=== PATIENT | male | born 1990 | race Hispanic/Latino ===

== ENCOUNTER 2025-08-23 20:53 | Emergency (ER) | payer OTHER ==
[~2025-08-23] VITALS: Ht 177.8 cm; Wt 126.1 kg
--- NOTE | 2025-08-23 21:27 | ERN ---
ED Note History of Present Illness Stated Complaint: C/O FOREIGN OBJECT IN RT EYE Chief Complaint: Eye Problems Time Seen by MD: 20:59 Dictation: PATIENT IS A 35-YEAR-OLD MALE COMING IN TODAY WITH COMPLAINTS OF A FOREIGN BODY SENSATION TO THE RIGHT EYE ONSET YESTERDAY. 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 HE SAID HE ATTEMPTING TO WASH OUT YESTERDAY. NO PRIMARY CARE DOCTOR. HE DENIES ANY CONTACTS OR CORRECTIVE LENSES. VISION CHANGES. Allergies: Coded Allergies: No Known Allergies (Unverified Allergy, Unknown, 08/23/25) Past Medical History Past Medical History: No Pertinent History Surgical History: None RN Note Reviewed/Agreed w/PFSH: Yes Review of System Dictation CONSTITUTIONAL: NEGATIVE EXCEPT FOR HPI HEAD/FACE: NEGATIVE EXCEPT FOR HPI EENT: NEGATIVE EXCEPT FOR HPI FOREIGN BODY SENSATION RIGHT EYE RESPIRATORY: NEGATIVE EXCEPT FOR HPI GASTROINTESTINAL/ABDOMINAL: NEGATIVE EXCEPT FOR HPI GENITOURINARY: NEGATIVE EXCEPT FOR HPI MUSCULOSKELETAL: NEGATIVE EXCEPT FOR HPI INTEGUMENTARY: NEGATIVE EXCEPT FOR HPI NEUROLOGICAL/PSYCH: NEGATIVE EXCEPT FOR HPI HEMATOLOGIC/LYMPHATIC: NEGATIVE EXCEPT FOR HPI ALL SYSTEMS NEGATIVE, EXCEPT NOTED ABOVE. 13 POINT REVIEW OF SYSTEMS ASSESSED AND ALL NEGATIVE EXCEPT FOR ABOVE. Initial Vital Sign VS Vital Signs Date Time Temp Pulse Resp B/P (MAP) Pulse Ox O2 Delivery O2 Flow Rate FiO2 08/23/25 20:56 97.2 59 20 115/61 98 Room Air 08/23/25 21:10 0 21 Physical Exam Dictation VITAL SIGNS REVIEWED GENERAL APPEARANCE: ALERT, ORIENTED X 3, NO ACUTE DISTRESS, WELL DEVELOPED, NOURISHED. HEAD AND FACE: NON-TRAUMATIC. EYES: PERRL, RIGHT CONJUNCTIVA INJECTED, EYELID NO TRAUMA, ANTERIOR CHAMBER WITH ARCUS SENILIS. EOMS INTACT PERRLA EARS: PINNAS INTACT AND NO SIGNS OF TRAUMA OR ERYTHEMA EAR CANALS CLEAR AND NO DISCHARGE TM NO ERYTHEMA NOSE: NO DISCHARGE, NO BLEEDING. OROPHARYNX: MOUTH NORMAL, TONGUE PINK, PHARYNX CLEAR,NO ERYTHEMA, TONSILS NO EXUDATES, NO ABSCESSES NOTED, MUCOUS MEMBRANE MOIST NECK: SUPPLE, NON-TENDER, NO THYROMEGALY, NO MASSES, NO JVD, NO BRUITS BREAST:DEFERRED CHEST:NO TENDERNESS, NO CREPITUS, NO PARADOXICAL MOVEMENT, NO RETRACTIONS LUNGS:CLEAR, WELL-VENTILATED, SYMMETRIC, NO RALES, NO WHEEZING, NO RHONCHI, NO STRIDOR, GOOD BREATH SOUNDS BILATERALLY HEART: REGULAR RATE, REGULAR RHYTHM, NO MURMUR, NO GALLOPS VASCULAR: NO PERIPHERAL EDEMA, ABDOMEN: SOFT, POSITIVE BOWEL SOUNDS, NONDISTENDED, NO GUARDING, NONTENDER, NO REBOUND, NO MASSES NO HEPATOMEGALY, NO SPLENOMEGALY, NO GREEN'S SIGN, NO HERNIAS. RECTAL: DEFERRED GENITAL: DEFERRED NEUROLOGICAL: NORMAL SPEECH, MOTOR FUNCTION INTACT, SENSORY FUNCTION INTACT MUSCULOSKELETAL: NECK NONTENDER, FULL RANGE OF MOTION, BACK NONTENDER, FULL RANGE OF MOTION, EXTREMITIES: NONTENDER, FULL RANGE OF MOTION SKIN: COLOR PINK, DRY, NO TURGOR, NO RASH, NO LACERATIONS, NO ABRASIONS, NO CONTUSIONS. LYMPHATIC: DEFERRED Results (Laboratory/Radiology) Labs Reviewed?: Yes ED Course ED Course Orders Procedure Category Date Status Time Visual Acuity Test CPOE 08/23/25 Transmitted (Er) 21:24 Tetracaine Hcl PHA 08/23/25 Complete (Pontocaine 0.5% 21:24 Fluorescein Sodium PHA 08/23/25 Complete (Vfyrd-T-Hdgbv At) 21:30 Ibuprofen 800 Mg Tab PHA 08/23/25 Complete (Motrin) 21:30 Current Medications Medications (Trade) Dose Ordered Sig/Zari Route PRN Reason Start Time Stop Time Status Last Admin Dose Admin Fluorescein Sodium (Jsbju-G-Evzvl At) 1 strip ONCE ONCE OP 08/23/25 21:30 08/23/25 21:31 DC 08/23/25 21:42 Ibuprofen (moTRIN) 800 mg ONCE ONCE PO 08/23/25 21:30 08/23/25 21:31 DC 08/23/25 21:42 Tetracaine HCl (Pontocaine 0.5% Ophth Soln) 2 drop ONCE STAT OP 08/23/25 21:24 08/23/25 21:27 DC 08/23/25 21:42 Vital Signs Date Time Temp Pulse Resp B/P (MAP) Pulse Ox O2 Delivery O2 Flow Rate FiO2 08/23/25 21:10 97.5 52 15 104/50 100 Room Air* 0 21 08/23/25 20:56 97.2 59 20 115/61 98 Room Air 2135/RIGHT EYE 20/40 LEFT EYE 20/20 BOTH EYES 20/20 UNCORRECTED 2155/PATIENT AWARE THAT HE HAS A RIGHT CORNEAL ABRASION AND ERYTHROMYCIN HAS BEEN INSTILL. HE WILL BE REFERRED TO [facility] TOMORROW IN [place] PRESCRIBED ERYTHROMYCIN OINTMENT TO BE PLACED EVERY 4 HOURS IN CONJUNCTIVAL SAC AND IBUPROFEN FOR PAIN. ALL QUESTIONS ANSWERED Medical Decision Making MDM MEDICAL DECISION-MAKING BASED ON EMPIRIC TREATMENT FOR EYE PAIN RIGHT EYE EXAMINED WITH TETRACAINE FLUORESCEIN PATIENT HAS A CORNEAL ABRASION ERYTHROMYCIN OPHTHALMIC OINTMENT WAS INSTILLED PATIENT REFERRED TO [facility] ADDITIONALLY STRONGLY ADVISED TO WEAR PROTECTIVE LENSES WORKING OUTDOORS OR WITH MECHANICAL EQUIPMENT Procedure Procedure Dictation: 2144/PROCEDURE EXPLAINED TO PATIENT HE AGREED TO PROCEED TWO DROPS TETRACAINE RIGHT EYE FLUORESCEIN STAIN PLACED I EXAMINED WITH BLACK LAMP TO INCLUDE EVERSION OF UPPER LID PATIENT HAS A SMALL CORNEAL ABRASION AT 03:00 EYE WAS RINSED AND PATIENT TOLERATED WELL DX & DISP Disposition: Discharge Departure Impression: Primary Impression: Right cornea abrasion Condition: Stable Scripts Ibuprofen (Ibuprofen 800 mg Tab) 800 Mg Tab 800 MG PO Q8H PRN for fever or pain, #30 TAB 0 Refills Prov: JACKSON CARPIO 08/23/25 Erythromycin Base (Erythromycin) 5 Mg/Gram (0.5 %) Oint...g. 1 APPL OP AD for 7 Days, #5 GM 0 Refills apply 1 cm ribbon into the lower conjunctival sac RIGHT EYE EVERY 4 HOURS WHILE AWAKE FOR THE NEXT SEVEN DAYS. Prov: JACKSON CARPIO 08/23/25 Additional Instructions: FOLLOW-UP WITH PRIMARY CARE PROVIDER IN 1 TO 2 DAYS. TAKE MEDICATIONS DIRECTED HERE IN THE EMERGENCY ROOM. OKAY TO CONTINUE HOME MEDICATIONS UNLESS OTHERWISE DISCUSSED DURING YOUR VISIT IN THE EMERGENCY ROOM TODAY. RETURN TO YOUR NEAREST EMERGENCY ROOM IF SYMPTOMS WORSEN OR IF THERE IS NO IMPROVEMENT. CALL 911 IF YOU NEED IMMEDIATE ASSISTANCE. TAKE TYLENOL OR MOTRIN [id number] NEEDED AND IF NO CONTRAINDICATIONS ARE PRESENT. INCREASE ORAL HYDRATION. A WOUND CULTURE OR URINE CULTURE WAS ORDERED HERE IN THE EMERGENCY ROOM DEPARTMENT PLEASE FOLLOW-UP WITH PRIMARY CARE PROVIDER AND ADVISE THEM TO GET REPEAT PORTS FROM OUR FACILITY. IF YOU HAD ANY ADELA WRAP/SPLINTS THAT WERE APPLIED HERE, PLEASE DO NOT REMOVE THEM UNTIL YOU SEE YOUR PRIMARY CARE OR SPECIALTY. CALL [facility] TOMORROW AT [phone] FOR AN APPOINTMENT. APPLY ANTIBIOTIC OINTMENT TO YOUR RIGHT EYE DIRECTED EVERY 4 HOURS WHILE AWAKE FOR THE NEXT SEVEN DAYS. STRONGLY SUGGEST WEARING PROTECTIVE EYE WEAR FOR WORKING OUTSIDE OR WITH MECHANICAL EQUIPMENT Referrals: SELF,REFERRAL (PCP) Time of Disposition: 21:59 I have reviewed the case, and I agree with, Diagnosis and Plan JACKSON CARPIO DIRECTOR [employer] HE[employer] Aug 23, 2025 21:27
[2025-08-23] MEDS: TETRACAINE HCL 0.5% 4 ML OPHTH SOLN OP STA (21:42)
[2025-08-23] MEDS: FLUORESCEIN SODIUM 1 STRIP STRIP OP ONE (21:42)
[2025-08-23] MEDS: ERYTHROMYCIN BASE 0.5% OPHTH OINT 1 GM TUBE OD STA (22:01)
[2025-08-23] MEDS ORDERED: IBUP-2077 PO (22:02)
[2025-08-23] MEDS ORDERED: ERYT1OIN7 OP (22:02)
[2025-08-23 22:51] VITALS: BP 108/59; PULSE 58; RESP 16; TEMP 97.5; O2SAT 100
== END 2025-08-23 22:51 | disposition home or self-care (01) ==
LOC: EDH 20:53
DX: S05.01XA Injury of conjunctiva and corneal abrasion without foreign body, right eye, initial encounter (principal); X58.XXXA Exposure to other specified factors, initial encounter; Y93.89 Activity, other specified; Y92.89 Other specified places as the place of occurrence of the external cause; Y99.8 Other external cause status
CPT/HCPCS: 99283